=== PATIENT | male | born 1995 | race Caucasian/White ===

== ENCOUNTER 2019-04-13 16:59 | Emergency (ER) | payer SELFPAY ==
--- NOTE | 2019-04-13 17:27 | Event Note ---
ED Screening Note Date of service: 04/13/19 Time: 17:25 ED Screening Note: This is a 23 y.o. M. that presents to the ER with chills, cough, and chest discomfort for 2 weeks. Current smoker Taking OTC medication with minimal relief. This initial assessment/diagnostic orders/clinical plan/treatment(s) is/are subject to change based on patients health status, clinical progression and re- assessment by fellow clinical providers in the ED. Further treatment and workup at subsequent clinical providers discretion. Patient/guardian urged not to elope from the ED as their condition may be serious if not clinically assessed and managed. Initial orders include: CXR
--- NOTE | 2019-04-13 18:04 | XRay Report ---
CHEST 2 VIEWS INDICATION / CLINICAL INFORMATION: cough. COMPARISON: None available. FINDINGS: SUPPORT DEVICES: None. HEART / MEDIASTINUM: No significant abnormality. LUNGS / PLEURA: No significant pulmonary or pleural abnormality. No pneumothorax. ADDITIONAL FINDINGS: No significant additional findings. IMPRESSION: 1. No acute findings. Signer Name: Danielito Fletcher MD Signed: 04/13/2019 5:59 PM Workstation Name: [id number]
--- NOTE | 2019-04-13 19:18 | Emergency Department Report ---
ED General Adult HPI - General Chief complaint: Upper Respiratory Infection Stated complaint: FLU LIKE SYM Time Seen by Provider: 04/13/19 17:25 Source: patient Mode of arrival: Ambulatory Limitations: No Limitations - History of Present Illness Initial comments: 23 yo BM states that he has been coughing, having chills and pain when taking deep breaths x 2 weeks. He states that it began after working outside in the rain for an extended period of time. -: week(s) (2) Location: chest Radiation: abdomen Severity scale (0 -10): 5 Quality: aching, constant Improves with: none Worsens with: movement Associated Symptoms: malaise Treatments Prior to Arrival: other (OTC cold and flu medications) - Related Data Previous Rx's Medication Instructions Recorded Last Taken Type Permethrin 5% [Acticin 5% CREAM] 1 applicatio TP ONCE #1 tube 05/13/15 Unknown Rx diphenhydrAMINE [Benadryl CAP] 25 mg PO Q6HR PRN #15 capsule 05/13/15 Unknown Rx ALBUTEROL Inhaler (OR & NICU) 2 puff IH QID PRN 30 Days #1 04/13/19 Unknown Rx [Proair] inhalation Azithromycin [Zithromax TAB] 250 mg PO QDAY 5 Days #6 tablet 04/13/19 Unknown Rx Allergies Allergy/AdvReac Type Severity Reaction Status Date / Time No Known Allergies Allergy Verified 04/13/19 17:00 ED Review of Systems ROS: Stated complaint: FLU LIKE SYM Other details as noted in HPI Constitutional: chills, malaise. denies: diaphoresis, fever Eyes: denies: eye pain, eye discharge, vision change ENT: congestion. denies: ear pain, throat pain Respiratory: cough, wheezing Cardiovascular: denies: chest pain, palpitations, dyspnea on exertion Endocrine: no symptoms reported Gastrointestinal: abdominal pain, diarrhea. denies: nausea, vomiting Genitourinary: denies: urgency, dysuria, frequency Musculoskeletal: denies: back pain, joint swelling, arthralgia Skin: denies: rash, lesions Neurological: as per HPI. denies: headache, weakness Psychiatric: denies: anxiety, depression Hematological/Lymphatic: denies: easy bleeding, easy bruising, swollen glands ED Past Medical Hx - Past Medical History Previous Medical History?: Yes Hx Hypertension: No Hx CVA: No Hx Heart Attack/AMI: No Hx Congestive Heart Failure: No Hx Diabetes: No Hx Pulmonary Embolism: No Hx GERD: No Hx Liver Disease: No Hx Renal Disease: No Hx of Cancer: No Hx Sickle Cell Disease: No Hx Arthritis: No Hx Headaches / Migraines: No Hx Seizures: No Hx Kidney Stones: No Hx Psychiatric Treatment: No Hx Asthma: No Hx COPD: No Hx Tuberculosis: No Hx Dementia: No Hx HIV: No Additional medical history: Pt states that he had chronic bronchitis as a child. - Surgical History Past Surgical History?: No Hx Coronary Stent: No Hx Open Heart Surgery: No Hx Pacemaker: No Hx Internal Defibrillator: No Hx Cholecystectomy: No Hx Appendectomy: No Hx Breast Surgery: No - Social History Smoking Status: Current Every Day Smoker Substance Use Type: None - Medications Home Medications: Home Medications Medication Instructions Recorded Confirmed Last Taken Type Permethrin 5% [Acticin 5% CREAM] 1 applicatio TP ONCE #1 tube 05/13/15 Unknown Rx diphenhydrAMINE [Benadryl CAP] 25 mg PO Q6HR PRN #15 capsule 05/13/15 Unknown Rx ALBUTEROL Inhaler (OR & NICU) 2 puff IH QID PRN 30 Days #1 04/13/19 Unknown Rx [Proair] inhalation Azithromycin [Zithromax TAB] 250 mg PO QDAY 5 Days #6 tablet 04/13/19 Unknown R x ED Physical Exam - General Limitations: No Limitations General appearance: alert, in no apparent distress, appears intoxicated - Head Head exam: Present: atraumatic, normocephalic - Eye Eye exam: Present: normal appearance, PERRL, EOMI Pupils: Present: normal accommodation. Absent: irregular, unequal, miosis - ENT ENT exam: Present: normal exam, normal orophraynx, TM's normal bilaterally, other (maxillary sinus tenderness with palpation) - Neck Neck exam: Present: normal inspection, tenderness, meningismus - Respiratory Respiratory exam: Present: accessory muscle use, decreased breath sounds. Absent: wheezes, rales, rhonchi - Cardiovascular Cardiovascular Exam: Present: regular rate, normal rhythm, normal heart sounds - GI/Abdominal GI/Abdominal exam: Present: soft, distended, tenderness (tenderness of epigastric region with palpation) - Rectal Rectal exam: Present: deferred - Extremities Exam Extremities exam: Present: normal inspection, full ROM, tenderness - Back Exam Back exam: Present: normal inspection, full ROM - Neurological Exam Neurological exam: Present: alert, altered, oriented X3 - Psychiatric Psychiatric exam: Present: normal affect, normal mood - Skin Skin exam: Present: warm, dry, intact ED Course Vital Signs 04/13/19 04/13/19 17:25 20:54 Temperature 98.1 F 99.0 F Pulse Rate 102 H 107 H Respiratory 20 18 Rate Blood Pressure 131/74 Blood Pressure 107/61 [Right] O2 Sat by Pulse 97 97 Oximetry ED Medical Decision Making - Medical Decision Making 23 yo BM states that he has been coughing, having chills and pain when taking deep breaths x 2 weeks. He states that it began after working outside in the rain for an extended period of time. Pt was given decadron injection and Duo- nebulizer treatment. After the injection and nebulizer treatment, the pt was reassessed and he stated that he can breathe better and feels some relief of his symptoms. The pt was informed that he will be given antibiotics and an inhaler; take medications as prescribed. He was instructed to f/u with his PCP and further informed that if symptoms worsen to return for assessment and care. Critical care attestation.: If time is entered above; I have spent that time in minutes in the direct care of this critically ill patient, excluding procedure time. ED Disposition Clinical Impression: Bronchitis Disposition: DC-01 TO HOME OR SELFCARE Is pt being admited?: No Does the pt Need Aspirin: No Condition: Stable Instructions: Acute Bronchitis (ED) Additional Instructions: The pt was informed that he will be given antibiotics and an inhaler; take medications as prescribed. He was instructed to f/u with his PCP and further informed that if symptoms worsen to return for assessment and care. Prescriptions: ALBUTEROL Inhaler (OR & NICU) [Proair] 2 puff IH QID PRN 30 Days #1 inhalation PRN Reason: Shortness Of Breath Azithromycin [Zithromax TAB] 250 mg PO QDAY 5 Days #6 tablet Referrals: [facility] [Outside] - 3-5 Days Forms: Work/School Release Form(ED) Time of Disposition: 20:34 Print Language: GERMAN
[2019-04-13] MEDS ORDERED: DECADRON IM ONE (19:22)
[2019-04-13] MEDS ORDERED: DUONEB *Not for PRN Use IH ONE (19:24)
[2019-04-13 20:55] VITALS: BP 107/61
== END 2019-04-13 20:55 | disposition home or self-care (01) ==
LOC: ED 16:59
DX: J40 Bronchitis, not specified as acute or chronic (principal); F17.200 Nicotine dependence, unspecified, uncomplicated
CPT/HCPCS: 71046; 94640; 96372; 99283; J1100

== ENCOUNTER 2020-05-16 22:08 | Emergency (ER) | payer SELFPAY ==
[2020-05-16 22:15] VITALS: BP 130/85
== END 2020-05-17 00:36 ==
LOC: ED 22:08
DX: Z00.8 Encounter for other general examination (principal); Z53.21 Procedure and treatment not carried out due to patient leaving prior to being seen by health care provider